=== PATIENT | male | born 1985 | race African-American/Black ===

== ENCOUNTER 2024-01-22 17:01 | Emergency (ER) | payer OTHER, SELFPAY ==
[2024-01-22 17:10] VITALS: BP 121/81
--- NOTE | 2024-01-22 18:11 | ED.GENMED ---
History of Present Illness
General
Chief Complaint: Medication Reaction
Time Seen by Provider: 01/22/24 18:02
Travel History
Have you had any contact with someone who has COVID-19?: No
Do you have any symptoms of coronavirus? Fever > 100 degrees, chills, cough, shortness of breath, sore throat, loss of taste or smell, muscle aches, or headache?: No
History of Present Illness
History of Present Illness:
38-year-old male presents to the emergency department from [facility]. He is apparently increasingly fatigued and having difficulty staying awake after having his Seroquel dosing increased. On my evaluation there is
no staff member present at the bedside however triage notes indicate that the patient's Seroquel was increased at nighttime to 600 mg in addition to 100 mg twice daily. Apparently the patient reported muscle aches and 'puffiness' to the triage team
however again on my evaluation he is minimally arousable even to a sternal rub. He is snoring loudly and has mildly dilated but reactive pupils. He will arouse briefly but speech is incoherent
Review of Systems
Review of Systems
Allergies reviewed?: Yes
All Other Systems: ROS reviewed and negative except as documented in HPI and ROS
Phy Exam
Physical Exam
Physical Exam:
GEN: Asleep, difficult to arouse, maintaining airway
HEENT: Oral mucosa moist, no scleral icterus
Cardiac: Regular rate
Lung: No respiratory distress, no tachypnea
MSK: No gross deformity or injuries
Skin: Good color, no pallor or jaundice, no rashes
Neuro: Asleep, arouses to deep tactile stimulation only briefly, speech is incoherent
Psych: Calm, cooperative
Course
Orders/Labs/Results
Orders:
Orders
01/22/24 18:22
Electrocardiogram (*1) Urgent
Reason for Study: QTc Monitoring
Bedside Glucose- Treatment ONCE
EKG- Treatment ONCE
01/22/24 18:37
Alcohol Urgent
CPK [Creatine Phosphokinase] Urgent
Complete Blood Count/With Diff Urgent
Comprehensive Metabolic Panel Urgent
Venous Blood Gas Urgent
%Oxygen/Room Air: 95
Abnormal Lab Results
01/22/24 01/22/24
18:37 18:39
WBC 3.1 L 10^3/uL
(4.8-10.8)
Hct 38.3 L %
(39.0-52.0)
MCV 75.7 L fL
(80.0-94.0)
MCH 26.3 L pg
(27.0-31.0)
Absolute Neuts (auto) 1.2 L 10^3/uL
(1.4-6.5)
Neutrophils % 38.5 L %
(42.2-75.2)
Monocytes % 12.1 H %
(1.7-9.3)
VBG pCO2 49 H mmHg
(35-48)
VBG pO2 202 H mmHg
(30-50)
VBG HCO3 30.4 H mmol/L
(22-27)
Glucose 122 H mg/dl
(70-99)
Creatine Kinase 486 H U/L
(55-170)
POC Glucose 127 H mg/dl
(70-99)
01/22/24 18:37
01/22/24 18:37
Vital Signs
Initial and Last Documented VS:
Initial Vital Signs
Temp Pulse Resp BP Pulse Ox
97.6 F 91 18 121/81 95
01/22/24 17:10 01/22/24 17:10 01/22/24 17:10 01/22/24 17:10 01/22/24 17:10
Last Documented Vital Signs
Temp Pulse Resp BP Pulse Ox
97.6 F 79 13 107/79 92
01/22/24 17:10 01/23/24 01:00 01/23/24 01:00 01/23/24 01:00 01/23/24 00:45
MDM/Problems Addressed
MDM/Problems Addressed:
Patient's vital signs remained stable, labs are unremarkable, no signs of encephalopathy. Likely combination of recent lack of sleep and high-dose antipsychotic use. Patient made in the ER essentially sleeping while awaiting a ride home, will need
to follow-up with his prescriber to adjust dosage of medications
*Critical Care Note
Total Time (30-74mins, 75-104mins- exclusive of procedures): Not Applicable
ED Attending Note
-
Portions of this chart may have been created with voice recognition software.� Occasional wrong word or��sound alike� substitutions may have occurred due to the inherent limitations of voice recognition software.
Discharge Plan
Departure
Patient Disposition: Home (Routine Discharge)
Date of Disposition: 01/22/24
Time of Disposition: 22:57
Patient with high blood pressure during this ER visit?: No
Discharge Problem:
Fatigue, Antipsychotics, neuroleptics, and major tranquilizers causing adverse effect in therapeutic use
Referrals:
UNKNOWN - PT NOT,INTERVIEWE [Family Provider] -
Activity Restrictions/Additional Instructions:
Please decrease Duke's Seroquel dosage as it appears to be causing excessive fatigue
Interventions
Interventions:
*Risk Screen - Suicide Last Done: 01/22/24 18:45
*Neglect/Abuse Screening Last Done: 01/22/24 18:45
ED- Fall Risk Assessment Last Done: 01/22/24 18:45
*ED COVID-19 Vaccine History Last Done: 01/22/24 18:45
ED-Skin Assessment Last Done: 01/22/24 18:45
ED- Pulmonary Assessment Last Done: 01/22/24 18:45
ED-EENT Assessment Last Done: 01/22/24 18:45
[2024-01-22 18:41] LABS: Glucose - Point of Care 127 mg/dl (70-99)
[2024-01-22 18:55] LABS: Venous Blood Gas B.E. 4.5 mmol/L (-4 to +4); Venous Blood Gas HCO3 30.4 mmol/L (22-27); Venous Blood Gas pCO2 49 mmHg (35-48); Venous Blood Gas pO2 202 mmHg (30-50)
[2024-01-22 18:59] LABS: % Eosinophils 4.5 % (0-6); % Lymphocytes 43.9 % (20.5-51.1); % Monocytes 12.1 % (1.7-9.3); % Neutrophils 38.5 % (42.2-75.2); Absolute Eosinophils 0.1 10^3/uL (0-0.7); Absolute Lymphocytes 1.4 10^3/uL (1.2-3.4); Absolute Monocytes 0.4 10^3/uL (0.1-0.6); Absolute Neutrophils 1.2 10^3/uL (1.4-6.5); Hematocrit 38.3 % (39.0-52.0); Hemoglobin 13.3 g/dL (13.0-18.0); Mean Corp Hgb Conc. 34.7 g/dL (33.0-37.0); Mean Corpuscular Hgb 26.3 pg (27.0-31.0); Mean Corpuscular Volume 75.7 fL (80.0-94.0); Mean Platelet Volume 9.3 fL (7.4-10.4); Nucleated Red Blood Cells % 0 % (-); Platelet Count 268 10^3/uL (130-400); Red Blood Cell Count 5.06 10^6/uL (4.70-6.10); White Blood Cell Count 3.1 10^3/uL (4.8-10.8)
[2024-01-22 19:08] LABS: ALT (SGPT) 36 U/L (0-50); AST (SGOT) 45 U/L (17-59); Albumin 4.2 g/dl (3.5-5.0); Alkaline Phosphatase 111 U/L (38-126); Blood Urea Nitrogen 9 mg/dl (9-20); Calcium 9.2 mg/dl (8.4-10.2); Carbon Dioxide 25 mmol/L (22-30); Chloride 105 mmol/L (98-107); Creatine Phosphokinase 486 U/L (55-170); Glucose 122 mg/dl (70-99); Potassium 3.7 mmol/L (3.5-5.1); Sodium 135 mmol/L (135-145); Total Bilirubin 0.5 mg/dl (0.2-1.3); Total Protein 7.2 g/dl (6.3-8.2); eGFR > 60.00
[2024-01-22 19:11] LABS: Alcohol None Detected
[2024-01-22 19:28] VITALS: BP 104/62
[2024-01-22 20:00] VITALS: BP 105/68
[2024-01-22 21:00] VITALS: BP 107/70
[2024-01-22 22:00] VITALS: BP 108/69
[2024-01-22 23:00] VITALS: BP 107/78
--- NOTE | 2024-01-22 23:01 | EDRN ---
Pt awake enough to speak to ELIDA Villavicencio. PA feels pt is stable enough to go home if picked up. Pt reports 'My mom can pick me up'. Mine (mother) called [phone]. Message left. Spoke to mother earlier with an update at 2029. Pt mother alerted staff
she was going to work at 2100. Report given to Radha.
[2024-01-23] VITALS: BP 105/69
[2024-01-23 01:00] VITALS: BP 107/79
[2024-01-23 02:00] VITALS: BP 110/79
[2024-01-23 03:00] VITALS: BP 111/80
[2024-01-23 04:00] VITALS: BP 101/82
[2024-01-23 08:03] VITALS: BP 136/71
== END 2024-01-23 08:32 | disposition home or self-care (01) ==
LOC: EMR 17:01
PROVIDERS: Physician Assistant; EMERGENCY PHYSICIAN Emergency Medicine
DX: R53.83 Other fatigue (principal); T43.505A Adverse effect of unspecified antipsychotics and neuroleptics, initial encounter; Y92.9 Unspecified place or not applicable
CPT/HCPCS: 99283; 80053; 82077; 82550; 82805; 82962; 85025; 93005

== ENCOUNTER 2024-02-05 12:40 | Emergency (ER) | payer OTHER, SELFPAY ==
[2024-02-05 13:07] VITALS: BP 126/86
--- NOTE | 2024-02-05 14:32 | ED.GENMED ---
History of Present Illness
General
Chief Complaint: Change in Mental Status
Source: patient and records
Time Seen by Provider: 02/05/24 14:27
Travel History
Have you had any contact with someone who has COVID-19?: No
Do you have any symptoms of coronavirus? Fever > 100 degrees, chills, cough, shortness of breath, sore throat, loss of taste or smell, muscle aches, or headache?: No
History of Present Illness
History of Present Illness:
38-year-old male past medical history of TBI presenting to the emergency department from [facility] to be evaluated for increased drowsiness. Patient seen in this ER for similar episode about 2 weeks ago with no obvious etiology however
it was attentionally related to a recent increase in patient's Seroquel although patient notes that he had this decreased recently down to 300 mg. Patient is without any other specific complaint at this time but does admit to the increased
drowsiness. Patient denies any drug or alcohol use
Past History
Past History
ED Past Medical History: Hypercholesterolemia and Other (Traumatic brain injury)
ED Past Surgical History: Orthopedic
Social History
Tobacco: Non-smoker
Alcohol: None
Drug: None
Living: with family
Review of Systems
Review of Systems
All Other Systems: ROS reviewed and negative except as documented in HPI and ROS
Phy Exam
Physical Exam
Physical Exam:
GENERAL: Alert , in no apparent distress
EYE: conjunctiva clear
NECK: Supple
ENT: o/p clr, mmm.
CARDIAC: Regular rate and rhythm
LUNGS: Clear breath sounds bilaterally, no acute respiratory distress, no wheezes/rales/rhonchi
NEUROLOGICAL: Alert and oriented x 3, ambulates with a steady gait
SKIN: Warm and dry, skin intact.
MUSCULOSKELETAL: well perfused.
PSYCH: Normal and appropriate interaction.
Scores
Heart Failure Risk
Heart Failure Risk Score: Not Applicable
Heart Score for Chest Pain Patients
STEMI patient?: Not applicable
Withdrawal Assessment of Alcohol
Withdrawal Assessment Completed?: Not applicable
Course
Orders/Labs/Results
Orders:
Orders
02/05/24 15:07
Complete Blood Count/With Diff Urgent
Comprehensive Metabolic Panel Urgent
02/05/24 15:08
Fentanyl, Urine Urgent
Urine Drug Abuse Screen Urgent
Date Specimen was Collected: 02/05/24
Time Specimen was Collected: 15:03
Abnormal Lab Results
02/05/24 02/05/24
15:07 15:08
WBC 3.6 L 10^3/uL
(4.8-10.8)
Hgb 12.5 L g/dL
(13.0-18.0)
Hct 35.8 L %
(39.0-52.0)
MCV 76.0 L fL
(80.0-94.0)
MCH 26.5 L pg
(27.0-31.0)
Monocytes % 13.8 H %
(1.7-9.3)
BUN 8 L mg/dl
(9-20)
Ur Buprenorphine Positive H
(Negative)
Ur Tricyclics Screen Positive H
(Negative)
Ur Amphetamines Screen Positive H
(Negative)
U Benzodiazepines Scrn Positive H
(Negative)
U Marijuana (THC) Screen Positive H
(Negative)
02/05/24 15:07
02/05/24 15:07
Vital Signs
Initial and Last Documented VS:
Initial Vital Signs
Temp Pulse Resp BP Pulse Ox
98.1 F 64 18 126/86 97
02/05/24 13:07 02/05/24 13:07 02/05/24 13:07 02/05/24 13:07 02/05/24 13:07
Last Documented Vital Signs
Temp Pulse Resp BP Pulse Ox
98.1 F 64 18 126/86 97
02/05/24 13:07 02/05/24 13:07 02/05/24 13:07 02/05/24 13:07 02/05/24 15:15
MDM/Problems Addressed
Differential Diagnosis Includes:
Medication side effect, substance abuse, less concern for infectious etiology
MDM/Problems Addressed:
38-year-old male presenting the emergency department for evaluation of drowsiness. Patient seen in the few weeks ago for similar and no etiology found and labs were otherwise unremarkable. On arrival to the emergency department patient is
ambulatory with steady gait, able to give a full history and conversive. No focal exam findings at this time. Will repeat labs and urine. Anticipate disposition home and continued outpatient workup.
Chronic conditions affecting care: Psychiatric illness
*Pulse Oximetry
Patient hypoxic: no
*Critical Care Note
Total Time (30-74mins, 75-104mins- exclusive of procedures): Not Applicable
Data Reviewed
Review of Other/Old Records Reveals: Labs and Records
Source: patient
Patient Management
Escalation/DeEscalation of care consider admission/obs:
Patient's labs appear unchanged from his previous 2 weeks ago. His UDS is consistent with his own medications outside of marijuana. Mother did contact me and states that she did find 2 bottles of Zoloft and a bottle of cyclobenzaprine in patient's
bedroom which she notes he is not prescribed these medications and believes that patient could be taking this. I explained that unfortunately I do not have a way to test for these but that it could be a potential cause for patient's excess
drowsiness. Patient combining marijuana with his other medications could also be a potential cause. Patient is awake alert and oriented x 3, ambulating with steady gait and at this time there does not appear to be any emergent pathology for his
presenting symptoms. Stable for discharge and continued outpatient management
ED Attending Note
-
Portions of this chart may have been created with voice recognition software.� Occasional wrong word or��sound alike� substitutions may have occurred due to the inherent limitations of voice recognition software.
Discharge Plan
Departure
Patient Disposition: Home (Routine Discharge)
Date of Disposition: 02/05/24
Time of Disposition: 15:42
Patient with high blood pressure during this ER visit?: No
Discharge Problem:
Drowsiness
Instructions: Dealing with Drowsiness from the Drugs You Take
Interventions
Interventions:
ED- Fall Risk Assessment Last Done: 02/05/24 15:15
ED- Pulmonary Assessment Last Done: 02/05/24 15:15
ED- Neurological Assessment Last Done: 02/05/24 15:15
ED Swallowing Screen Last Done: 02/05/24 15:15
Discharge Date and Time
Print Language: ARGENTINE
[2024-02-05 15:21] LABS: % Basophils 0.8 % (0-2); % Eosinophils 3.1 % (0-6); % Immature Granulocytes 0.3 % (0-0.5); % Lymphocytes 36.6 % (20.5-51.1); % Monocytes 13.8 % (1.7-9.3); % Neutrophils 45.4 % (42.2-75.2); Absolute Eosinophils 0.1 10^3/uL (0-0.7); Absolute Lymphocytes 1.3 10^3/uL (1.2-3.4); Absolute Monocytes 0.5 10^3/uL (0.1-0.6); Absolute Neutrophils 1.6 10^3/uL (1.4-6.5); Hematocrit 35.8 % (39.0-52.0); Hemoglobin 12.5 g/dL (13.0-18.0); Mean Corp Hgb Conc. 34.9 g/dL (33.0-37.0); Mean Corpuscular Hgb 26.5 pg (27.0-31.0); Mean Platelet Volume 10.1 fL (7.4-10.4); Nucleated Red Blood Cells % 0 % (-); Platelet Count 227 10^3/uL (130-400); Red Blood Cell Count 4.71 10^6/uL (4.70-6.10); Red Cell Dist. Width 14.1 % (11.5-14.5); White Blood Cell Count 3.6 10^3/uL (4.8-10.8)
[2024-02-05 15:33] LABS: Amphetamines Positive (Negative); Barbiturates Negative (Negative); Benzodiazepines Positive (Negative); Buprenorphine Positive (Negative); Cocaine Negative (Negative); Marijuana Positive (Negative); Methadone Negative (Negative); Methamphetamines Negative (Negative); Opiates Negative (Negative); Phencyclidine Negative (Negative); Tricyclic Antidepressants Positive (Negative)
[2024-02-05 15:43] LABS: ALT (SGPT) 36 U/L (0-50); AST (SGOT) 35 U/L (17-59); Albumin 4.1 g/dl (3.5-5.0); Alkaline Phosphatase 113 U/L (38-126); Blood Urea Nitrogen 8 mg/dl (9-20); Calcium 9.6 mg/dl (8.4-10.2); Carbon Dioxide 25 mmol/L (22-30); Chloride 105 mmol/L (98-107); Glucose 94 mg/dl (70-99); Potassium 3.9 mmol/L (3.5-5.1); Sodium 136 mmol/L (135-145); Total Bilirubin 0.4 mg/dl (0.2-1.3); Total Protein 7.1 g/dl (6.3-8.2); eGFR > 60.00
[2024-02-05 15:51] LABS: Fentanyl, Urine Negative (Negative)
[2024-02-05 16:02] VITALS: BP 118/98
== END 2024-02-05 16:04 | disposition home or self-care (01) ==
LOC: EMR 12:40
PROVIDERS: Physician Assistant Medical; EMERGENCY PHYSICIAN Emergency Medicine
DX: R40.0 Somnolence (principal); E78.00 Pure hypercholesterolemia, unspecified; Z87.820 Personal history of traumatic brain injury
CPT/HCPCS: 99283; 80053; 80306; 80307; 85025

== ENCOUNTER 2024-04-10 10:04 | Emergency (ER) | payer OTHER, SELFPAY ==
[2024-04-10 10:07] VITALS: BP 143/95
[2024-04-10 10:28] VITALS: BP 131/89
--- NOTE | 2024-04-10 10:29 | ED.CVA ---
History of Present Illness
General
Chief Complaint: CVA/TIA Symptoms
Source: patient
Exam Limitations: none
Time Seen by Provider: 04/10/24 10:19
Nursing documentation reviewed up to this point in time: agreed with
Onset of Stroke Symptoms
Onset of symptoms known: No
Time pt last seen normal is known: No
Travel History
Have you had any contact with someone who has COVID-19?: No
Do you have any symptoms of coronavirus? Fever > 100 degrees, chills, cough, shortness of breath, sore throat, loss of taste or smell, muscle aches, or headache?: No
History of Present Illness
History of Present Illness:
38-year-old male presents emergency department due to headache, slurred speech. He woke up Monday, 4 days ago with the symptoms.
Past History
Past History
ED Past Medical History: Hypercholesterolemia and Other (Traumatic brain injury)
ED Past Surgical History: Orthopedic
Social History
Tobacco: Non-smoker
Alcohol: None
Drug: None
Living: with family
Review of Systems
Review of Systems
Allergies reviewed?: Yes
All Other Systems: Not applicable
Constitutional: Reports no symptoms
EENT: Reports no symptoms
Respiratory: Reports no symptoms
Cardiac: Reports no symptoms
ABD/GI: Reports no symptoms
: Reports no symptoms
Musculoskeletal: Reports no symptoms
Skin: Reports no symptoms
Neurological: Reports headache
Endocrine: Reports no symptoms
Hematologic/Lymphatic: Reports no symptoms
Psychiatric: Reports no symptoms
Phy Exam
Physical Exam
Physical Exam:
Physical Exam
General: no apparent distress, not acutely ill
Neck: supple. no meningeal signs. normal posterior pharynx
Heart: s1/s2 regular rate and rhythm, no murmur. equal radial
pulses.
HEENT: Pupils equal round reactive to light, EOMI
Lungs: no acute respiratory distress. clear bilaterally
Abdomen: normal bowel sounds. not tender. no CVAT
Neuro: alert and oriented. no focal neurological deficits cranial nerves II through XII intact
Skin: no rash
Psychiatric: well kept. interactive and cooperative
Extremities: no edema. no calf tenderness. negative homans. good distal pulses
Course
Orders/Labs/Results
Orders:
Orders
04/10/24 10:27
CT Head W/o Iv Contrast Urgent
Comment:
Reason For Exam: headache, slurred speech, TBI, bruising parietal
IV Insert/Care/Rem.- Treatment PRN
04/10/24 10:43
Alcohol Urgent
Complete Blood Count/With Diff Urgent
Comprehensive Metabolic Panel Urgent
Abnormal Lab Results
04/10/24
10:43
RBC 4.41 L 10^6/uL
(4.70-6.10)
Hgb 11.6 L g/dL
(13.0-18.0)
Hct 34.2 L %
(39.0-52.0)
MCV 77.6 L fL
(80.0-94.0)
MCH 26.3 L pg
(27.0-31.0)
RDW 14.9 H %
(11.5-14.5)
Monocytes % 11.6 H %
(1.7-9.3)
Carbon Dioxide 31 H mmol/L
(22-30)
BUN 8 L mg/dl
(9-20)
AST 92 H U/L
(17-59)
04/10/24 10:43
04/10/24 10:43
Vital Signs
Initial and Last Documented VS:
Initial Vital Signs
Temp Pulse Resp BP Pulse Ox
97.7 F 81 18 143/95 95
04/10/24 10:07 04/10/24 10:07 04/10/24 10:07 04/10/24 10:07 04/10/24 10:07
Last Documented Vital Signs
Temp Pulse Resp BP Pulse Ox
97.7 F 71 18 124/88 95
04/10/24 10:07 04/10/24 13:43 04/10/24 13:43 04/10/24 13:43 04/10/24 13:43
MDM/Problems Addressed
Differential Diagnosis Includes:
cva, concussion, seizure
MDM/Problems Addressed:
38 yo male with likely concussion vs medication related drowsiness.
Chronic conditions affecting care: Psychiatric illness (schizophrenia)
Acute Exacerbation and/or Progression of Chronic Illness: Psychiatric illness (schizophrenia)
*Radiology
Radiology exam reviewed: radiology read reviewed (ct head nad)
*Pulse Oximetry
Patient hypoxic: no
*EKG
Interpreted by ED Provider?: NA
*Gun Repair Clerk Interpretation
Rate: Gun Repair Clerk- N/A
*Critical Care Note
Total Time (30-74mins, 75-104mins- exclusive of procedures): Not Applicable
Patient Management
Social determinants of health affecting care: Living situation and Strong social support
Escalation/DeEscalation of care consider admission/obs:
admit not indicated
ED Attending Note
-
Portions of this chart may have been created with voice recognition software.� Occasional wrong word or��sound alike� substitutions may have occurred due to the inherent limitations of voice recognition software.
Discharge Plan
Departure
Patient Disposition: Home (Routine Discharge)
Date of Disposition: 04/10/24
Time of Disposition: 13:30
Patient with high blood pressure during this ER visit?: Yes
Condition: Good
Discharge Problem:
Concussion
Instructions: Concussion, Adult ED, BLOOD PRESSURE
Prescriptions:
No Action
fluoxetine 40 mg Capsule
40 mg PO DAILY
atorvastatin 20 mg Tablet
20 mg PO DAILY
haloperidol 5 mg Tablet
5 mg PO QPM
quetiapine 300 mg Tablet
300 mg PO HS
quetiapine 100 mg Tablet
200 mg PO DAILY
gabapentin 300 mg Capsule
300 mg PO DAILY
lacosamide 100 mg Tablet
100 mg PO BID
Patient Comments:
04/10/2024- filled at [facility] on 04/09/2024 for 60 tablets
buprenorphine-naloxone 8-2 mg Film
2.5 film BUCCAL DAILY
Patient Comments:
04/10/2024- filled at [facility] on 03/27/2024 for 70 films
Referrals:
UNKNOWN - PT DOES,NOT KNOW [Family Provider] -
Activity Restrictions/Additional Instructions:
Follow up with your neurologist and psychiatrist. Return for any concerns.
Interventions
Interventions:
*Risk Screen - Suicide Last Done: 04/10/24 10:10
*Neglect/Abuse Screening Last Done: 04/10/24 10:10
*ED COVID-19 Vaccine History Last Done: 04/10/24 10:10
ED- Pulmonary Assessment Last Done: 04/10/24 10:36
ED- Neurological Assessment Last Done: 04/10/24 10:36
ED- Cardiac Assessment Last Done: 04/10/24 10:36
Discharge Date and Time
Print Language: LITHUANIAN
[2024-04-10 10:57] LABS: % Basophils 0.6 % (0-2); % Eosinophils 3.2 % (0-6); % Lymphocytes 37.3 % (20.5-51.1); % Monocytes 11.6 % (1.7-9.3); % Neutrophils 47.3 % (42.2-75.2); Absolute Eosinophils 0.2 10^3/uL (0-0.7); Absolute Lymphocytes 1.8 10^3/uL (1.2-3.4); Absolute Monocytes 0.6 10^3/uL (0.1-0.6); Absolute Neutrophils 2.3 10^3/uL (1.4-6.5); Hematocrit 34.2 % (39.0-52.0); Hemoglobin 11.6 g/dL (13.0-18.0); Mean Corp Hgb Conc. 33.9 g/dL (33.0-37.0); Mean Corpuscular Hgb 26.3 pg (27.0-31.0); Mean Corpuscular Volume 77.6 fL (80.0-94.0); Mean Platelet Volume 9.7 fL (7.4-10.4); Nucleated Red Blood Cells % 0 % (-); Platelet Count 186 10^3/uL (130-400); Red Blood Cell Count 4.41 10^6/uL (4.70-6.10); Red Cell Dist. Width 14.9 % (11.5-14.5); White Blood Cell Count 4.8 10^3/uL (4.8-10.8)
[2024-04-10 11:04] LABS: ALT (SGPT) 50 U/L (0-50); AST (SGOT) 92 U/L (17-59); Albumin 4.1 g/dl (3.5-5.0); Alcohol None Detected; Alkaline Phosphatase 103 U/L (38-126); Blood Urea Nitrogen 8 mg/dl (9-20); Carbon Dioxide 31 mmol/L (22-30); Chloride 102 mmol/L (98-107); Glucose 96 mg/dl (70-99); Potassium 3.5 mmol/L (3.5-5.1); Sodium 141 mmol/L (135-145); Total Bilirubin 0.5 mg/dl (0.2-1.3); eGFR > 60.00
[2024-04-10 13:40] VITALS: BP 124/88
[2024-04-10 13:43] VITALS: BP 124/88
[2024-04-10 14:00] VITALS: BP 120/83
[2024-04-10 15:00] VITALS: BP 117/84
== END 2024-04-10 15:48 | disposition home or self-care (01) ==
LOC: EMR 10:04
PROVIDERS: EMERGENCY PHYSICIAN Emergency Medicine
DX: S06.0XAA Concussion with loss of consciousness status unknown, initial encounter (principal); X58.XXXA Exposure to other specified factors, initial encounter; E78.00 Pure hypercholesterolemia, unspecified; F20.9 Schizophrenia, unspecified
CPT/HCPCS: 99284; 70450; 80053; 82077; 85025

== ENCOUNTER 2024-05-15 16:26 | Observation (INO) | payer OTHER, SELFPAY ==
[2024-05-15] VITALS (10 sets, daily range): BP systolic 126–155; BP diastolic 71–106; BMI 25.6; BMI 28.5
[2024-05-15 12:31] LABS: % Basophils 0.6 % (0-2); % Eosinophils 0.2 % (0-6); % Immature Granulocytes 0.2 % (0-0.5); % Lymphocytes 21.7 % (20.5-51.1); % Monocytes 9.1 % (1.7-9.3); % Neutrophils 68.2 % (42.2-75.2); Absolute Lymphocytes 1.1 10^3/uL (1.2-3.4); Absolute Monocytes 0.5 10^3/uL (0.1-0.6); Absolute Neutrophils 3.5 10^3/uL (1.4-6.5); Hematocrit 41.2 % (39.0-52.0); Hemoglobin 14.1 g/dL (13.0-18.0); Mean Corp Hgb Conc. 34.2 g/dL (33.0-37.0); Mean Platelet Volume 9.7 fL (7.4-10.4); Nucleated Red Blood Cells % 0 % (-); Platelet Count 299 10^3/uL (130-400); Red Blood Cell Count 5.42 10^6/uL (4.70-6.10); White Blood Cell Count 5.1 10^3/uL (4.8-10.8)
[2024-05-15 12:33] LABS: Urine Albumin Negative (Neg - Trace); Urine Bilirubin Negative (Negative); Urine Character Clear (Clear); Urine Color Yellow; Urine Glucose Negative (Negative); Urine Ketone Trace (Negative); Urine Leukocyte Negative (Negative); Urine Nitrite Negative (Negative); Urine Occult Blood Negative (Negative); Urine Urobilinogen Negative (Neg - 1+)
[2024-05-15 12:42] LABS: ALT (SGPT) 24 U/L (0-50); AST (SGOT) 36 U/L (17-59); Albumin 5.4 g/dl (3.5-5.0); Alkaline Phosphatase 99 U/L (38-126); Blood Urea Nitrogen 16 mg/dl (9-20); Carbon Dioxide 27 mmol/L (22-30); Chloride 104 mmol/L (98-107); Glucose 102 mg/dl (70-99); Potassium 4.3 mmol/L (3.5-5.1); Sodium 143 mmol/L (135-145); Total Bilirubin 0.8 mg/dl (0.2-1.3); Total Protein 8.9 g/dl (6.3-8.2); eGFR > 60.00
--- NOTE | 2024-05-15 12:42 | ED.GENMED ---
History of Present Illness
General
Chief Complaint: Change in Mental Status
Source: patient and other (Crisis team)
Time Seen by Provider: 05/15/24 12:29
History of Present Illness
History of Present Illness:
38-year-old male somewhat of a poor historian presents with an apparent mental status change. Information gathered from the record and from crisis is that the patient has been more confused recently although time course is unknown. I tried to
contact the mom and left a message. Patient states he feels like he has been off for the last week. He states however this been no changes medications. He denies any pain headache visual issues or focal neurologic symptoms. He denies fever. He
is followed at crisis.
Past History
Past History
ED Past Medical History: Hypercholesterolemia and Other (Traumatic brain injury)
ED Past Surgical History: Orthopedic
Social History
Tobacco: Non-smoker
Alcohol: None
Drug: None
Living: with family
Employment: Not employed
Review of Systems
Review of Systems
All Other Systems: Not applicable
Constitutional: Denies fever or chills
Neurological: Denies dizzy, headache, weakness or numbness
Phy Exam
Physical Exam
Physical Exam:
GENERAL: Alert. Slightly slow to answer questions. Knows his name. Knows his age. Aware he is at the hospital but unsure which 1. Had troubles with the year.
EYE: Orbits normal.
NECK: Supple, no significant adenopathy.
ENT: Pharynx without erythema
CARDIAC: Regular rate and rhythm without any obvious murmurs.
LUNGS: Clear breath sounds,normal
ABDOMEN: Soft, without focal tenderness or distention
NEUROLOGICAL: Alert. Nonfocal. Speech normal. Cranial nerves II through XII intact. [place] normal.
SKIN: Warm and dry, no rash or lesion, no discoloration, skin intact.
MUSCULOSKELETAL: No edema,no deformity.Good color
PSYCH: Flat affect. Denies suicidal or homicidal ideation
Course
Orders/Labs/Results
Orders:
Orders
05/15/24 12:02
Alcohol Urgent
CMP [Comprehensive Metabolic Panel] Urgent
Complete Blood Count/With Diff Urgent
Fentanyl, Urine Urgent
Urinalysis Reflex To Culture Urgent
Date Specimen was Collected: 05/15/24
Time Specimen was Collected: 11:55
Urine Drug Abuse Screen Urgent
Date Specimen was Collected: 05/15/24
Time Specimen was Collected: 11:55
05/15/24 12:39
Add On- LAB Urgent
Tests Added?: alcohol
05/15/24 13:08
CT Head W/o Iv Contrast Urgent
Comment:
Reason For Exam: Change in mental status.
05/15/24 13:20
Consult Psychiatry [PSYCHIATRY CONSULT] Urgent
Consulting Provider: Cindy Hercules
Was physician already notified: Yes
05/15/24 Dinner
Regular
At Your Request: Full Participation
05/15/24 15:34
Admit/Transfer Patient As Directed
Co-Sign Provider:
Level of Care: Observation services
Assign to:: Medical/Surgical
Physician / Group: pura morse
Diagnosis: Acute metabolic encephalopathy
PRN Pain Medication Management As Directed
May give lesser potent ordered pain med per pt: Yes
preference::
Protocol:: Medication orders for pain may be administered in a
manner that supports deferring to patient preference
when the pt is:
- Requesting an ordered lesser potent pain medication.
Least to most potent pain medications are defined
as: acetaminophen < NSAID < tramadol < opioids
(morphine, oxycodone, hydromorphone).
- Requesting a lesser dose of the same medication IF
ORDERED.
- Requesting a less intrusive route of administration
if both routes are prescribed by the provider (PO <
IV).
05/15/24 15:35
Code Status As Directed
Resuscitation Status: Full Code
05/15/24 16:46
0.9% Sodium Chloride 1000 ml [Nss] 1,000 ml IV 100 mls/hr
Acetaminophen [Tylenol] 650 mg PO Q4HPRN PRN
Bisacodyl [Dulcolax] 10 mg RECTAL [id number] PRN
Docusate W/Senna [Senokot-S] 1 tablet PO BIDPRN PRN
Polyethylene Glycol Powder [Miralax] 17 grams PO DAILYPRN PRN
05/15/24 16:46
Activity As Directed
Activity Level: Out of Bed-Early Mobility
Vital Signs As Directed
Frequency: Per unit guidelines
DX Deep Vein Thrombosis Video Routine
05/15/24 18:00
Enoxaparin Sodium [Lovenox] 40 mg SC QPM
Haloperidol [Haldol] 5 mg PO QPM
05/15/24 20:00
Lacosamide [Vimpat] 150 mg PO BID
05/15/24 22:00
Atorvastatin [Lipitor] 20 mg PO HS
Haloperidol [Haldol] 5 mg PO HS
05/16/24 06:00
Basic Metabolic Panel IN AM
Complete Blood Count/No Diff IN AM
05/16/24 08:00
Buprenorphine [Subutex] 20 mg SL DAILY
Fluoxetine HCl [Prozac] 40 mg PO DAILY
Gabapentin [Neurontin] 300 mg PO DAILY
Abnormal Lab Results
05/15/24
12:02
MCV 76.0 L fL
(80.0-94.0)
MCH 26.0 L pg
(27.0-31.0)
RDW 15.0 H %
(11.5-14.5)
Absolute Lymphs (auto) 1.1 L 10^3/uL
(1.2-3.4)
Glucose 102 H mg/dl
(70-99)
Total Protein 8.9 H g/dl
(6.3-8.2)
Albumin 5.4 H g/dl
(3.5-5.0)
Urine Ketones Trace A
(Negative)
Ur Buprenorphine Positive H
(Negative)
Ur Tricyclics Screen Positive H
(Negative)
U Benzodiazepines Scrn Positive H
(Negative)
U Marijuana (THC) Screen Positive H
(Negative)
05/15/24 12:02
05/15/24 12:02
Vital Signs
Initial and Last Documented VS:
Initial Vital Signs
Temp Pulse Resp BP Pulse Ox
98.4 F 70 18 155/106 96
05/15/24 11:51 05/15/24 11:51 05/15/24 11:51 05/15/24 11:51 05/15/24 11:51
Last Documented Vital Signs
Temp Pulse Resp BP Pulse Ox
99.1 F 69 18 152/92 99
05/15/24 16:46 05/15/24 16:46 05/15/24 16:46 05/15/24 16:46 05/15/24 18:06
MDM/Problems Addressed
Differential Diagnosis Includes:
Patient with some apparent change in mental status. Clinically nontoxic. Nothing to support infectious etiology. Previous records show some similar like events. Workup in progress.
*Radiology
Radiology exam reviewed: radiology read reviewed (Negative CT)
*Pulse Oximetry
Patient hypoxic: no
*Critical Care Note
Total Time (30-74mins, 75-104mins- exclusive of procedures): Not Applicable
Data Reviewed
Review of Other/Old Records Reveals: Labs and Records
Update Note
Update Note:
Patient seen by psychiatry. Does not orient x 3. Although nonfocal nontoxic no signs of meningitis. Highly suspect medications but given that this is an apparent change patient will be admitted for observation and further workup
ED Attending Note
-
Portions of this chart may have been created with voice recognition software.� Occasional wrong word or��sound alike� substitutions may have occurred due to the inherent limitations of voice recognition software.
Discharge Plan
Departure
Patient Disposition: Admit
Date of Disposition: 05/15/24
Time of Disposition: 14:51
Presentation/result/management discussed w/ accepting MD/DO: Hospitalist
Discharge Problem:
Change in mental status, Suspect medication/drug related
Interventions
Interventions:
*Risk Screen - Suicide Last Done: 05/15/24 12:52
*General Assessment Last Done: 05/15/24 12:52
*Neglect/Abuse Screening Last Done: 05/15/24 12:52
ED- Fall Risk Assessment Last Done: 05/15/24 12:52
*ED COVID-19 Vaccine History Last Done: 05/15/24 12:52
*Nursing Disposition Last Done: 05/15/24 16:21
ED- Pulmonary Assessment Last Done: 05/15/24 12:52
ED-Psychological Assessment Last Done: 05/15/24 12:52
ED- Neurological Assessment Last Done: 05/15/24 12:52
ED- Cardiac Assessment Last Done: 05/15/24 12:52
ED Swallowing Screen Last Done: 05/15/24 12:52
Discharge Date and Time
Discharge Date/Time: 05/15/24 16:40
[2024-05-15 13:00] LABS: Amphetamines Negative (Negative); Barbiturates Negative (Negative); Benzodiazepines Positive (Negative); Buprenorphine Positive (Negative); Cocaine Negative (Negative); Marijuana Positive (Negative); Methadone Negative (Negative); Methamphetamines Negative (Negative); Opiates Negative (Negative); Phencyclidine Negative (Negative)
[2024-05-15 13:01] LABS: Tricyclic Antidepressants Positive (Negative)
[2024-05-15 13:13] LABS: Alcohol None Detected
[2024-05-15 13:35] LABS: Fentanyl, Urine Negative (Negative)
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
--- NOTE | 2024-05-15 15:39 | HPS.HSE ---
Family Physician
-
Family Physician: INTERVIEWE UNKNOWN - PT NOT
Chief Complaint
-
Changes in mental status
History of Present Illness
Patient is 38 with history of drug use, hyperlipidemia, traumatic brain injury who came to the ER with change mental status, patient is poor historian, not fully oriented, patient last thing [place], was here at
[facility] for group therapy, he lives at [facility]
Patient denies any chest pain or shortness of breath, no fever or chills, no abdominal pain, no nausea, no vomiting, no diarrhea or constipation.
Seen by psych in the ER who recommends to skip Seroquel and consider Prozac in a.m. and Wellbutrin a.m., continue Haldol qhs
Patient will be admitted under hospitalist service observation status.
Medical History
Past Medical History
Past Medical History: Reports Hypercholesterolemia and Other (Seizure)
Past Surgical History: Reports Orthopedic
Social History
Tobacco: Other (Marijuana)
Alcohol: None
Drug: Former User (As per the patient but positive drug screen for benzo)
Personal:
Living: With Family
Family History
Family History: Not pertinent
Allergies / Home Medications
Allergies reflects when Allergies were last updated in [facility].
Home Medications with original date entered in [facility]
Allergy/Medication List:
Allergies
Allergy/AdvReac Type Severity Reaction Status Date / Time
No Known Allergies Allergy Verified 04/10/24 10:14
Home Medications
atorvastatin 20 mg tablet 20 mg PO HS 04/10/24
buprenorphine 8 mg-naloxone 2 mg sublingual film 2.5 film buccal DAILY 04/10/24
fluoxetine 40 mg capsule 40 mg PO DAILY 04/10/24
gabapentin 300 mg capsule 300 mg PO DAILY 04/10/24
haloperidol 5 mg tablet 5 mg PO DAILY 04/10/24
quetiapine 300 mg tablet 300 mg PO HS 04/10/24
lacosamide 150 mg tablet 150 mg PO BID 05/15/24
Review of Systems
-
A 12 point ROS was completed and negative except as noted: Yes
Constitutional: Reports Fatigue and Sleep Disturbance; Denies Fever, Weight Gain or Weight Loss
EENT: Denies Tearing, Sore Throat, Mouth Pain, Mouth Swelling or Runny Nose
Respiratory: Denies Cough, Hemoptysis or Trouble Breathing
Cardiac: Denies Chest Pain, Diaphoresis, Palpitations or Syncope
Abdomen/GI: Denies Abdominal Pain, Nausea, Vomiting, Diarrhea, Constipated, Bloody Stools or Black Stools
: Denies Dysuria, Frequency, Flank Pain, Incontinence, Difficulty Voiding, Urgency, Bleeding or Dark Urine
Musculoskeletal: Denies Joint Pain, Joint Swelling, Muscle Pain, Muscle Stiffness or Edema
Skin: Denies Itching or Rash
Neurological: Denies Dizzy, Headache, Weakness or Numbness
Endocrine: Denies Polyuria, Polydipsia or Temp Intolerance
Hematologic/Lymphatic: Denies Bleeding, Swollen Glands or Bruising
Psych: Reports Calm; Denies Depression, Anxiety or Panic Disorder
Physical Exam
Vital Signs
Vital Signs
Temp Pulse Resp BP Pulse Ox
98.2 F 86 15 126/71 99
05/15/24 14:00 05/15/24 14:00 05/15/24 14:00 05/15/24 14:00 05/15/24 14:00
Physical Exam
General: Well Developed, Well Nourished, No Apparent Distress, Comfortable and Good Appetite; No Pain, Chills or Sweats
HEENT: NormoCephalic, Moist mucous membranes, Atraumatic, Good Dentition, PERRLA, Nose Appears Normal and Ears Appear Normal
Respiratory: Clear
Cardiac: S1/S2 and Regular Rhythm
Breast: Deferred by me
GI: Soft, Non Tender, Non Distended and Normal Bowel Sounds
Genito-urinary: Deferred by me
Musculoskeletal: No Clubbing, No Cyanosis and No Edema
Skin: Warm; No Rash, Jaundice, Ulcers, Lesions or Decubitus Ulcers
Neuro: Awake (Not fully oriented), Oriented, No Motor Deficits, Nonfocal/grossly intact and Cranial Nerves Intact
Hematologic/Lymphatic: No Lymphadenopathy
Psych: Calm
Laboratory Results
-
05/15/24 12:02
05/15/24 12:02
Laboratory Results
Total Bilirubin 0.8 mg/dl (0.2-1.3) 05/15/24 12:02
AST 36 U/L (17-59) 05/15/24 12:02
ALT 24 U/L (0-50) 05/15/24 12:02
Alkaline Phosphatase 99 U/L (38-126) 05/15/24 12:02
Data Reviewed
-
Diagnostic Radiology: Report Reviewed by me
CT Scan: Report Reviewed by me
Medical Tests (Nuc Med, Echo, EKG etc): Report Reviewed by me
Lab Data: Labs Reviewed by me
Old Records: Reviewed
Impression/Plan
-
IMPRESSION:
38 years old with history of TBI, substance use disorder who came to the ER with a change in mental status, denies recent drug use but urine drug screen shows benzodiazepine which he is not on as outpatient.
PLAN:
Acute metabolic encephalopathy.
Multifactorial.
Possible secondary to drug use based on positive urine drug screen of benzodiazepine despite patient denied.
As per family patient was prescribed Seroquel but was not taking it at home.
Seen by psych in the ER who recommends to skip Seroquel and consider Prozac in a.m. and Wellbutrin a.m., continue Haldol qhs.
IV fluid hydration.
If no improvement will consider MRI brain and neurology consult.
Hyperlipidemia.
Continue atorvastatin
TBI, seizure
Continue Vimpat/gabapentin
CODE STATUS: Full code
DVT prophylaxis: Lovenox
Diet: Regular diet
--- NOTE | 2024-05-15 15:43 | PHANOTE ---
med rec tati(05/15/24): Called pharmacy for more details on medications. Of note, pharmacy stated patient did not take nor need Seroquel 100mg tablets, despite filling them on 04/24/24. Patient also may have run out of gabapentin 300mg capsules and
Suboxone 8-2 films.
[2024-05-15] MEDS: HALDOL 5 MG PO (17:35)
[2024-05-15] MEDS: NSS 1000 IV (17:35)
[2024-05-15] MEDS: LOVENOX 40 MG SC (17:35)
--- NOTE | 2024-05-15 18:12 | TRANSFER ---
Pt admitted from ED into room 435-2, ambulated from stretcher to bed. AAOx1, disoriented to time and place. Pt denies having any pain nor any other complaints at this time. Pt cooperative and agreeable to taking medications per MAR. Oriented to room
and plan of care. Call crowe within reach.
[2024-05-15] MEDS: VIMPAT 150 MG PO (22:26)
[2024-05-15] MEDS: LIPITOR 20 MG PO (22:26)
[2024-05-16] MEDS: NSS 1000 IV ×2 (05:45→18:06)
[2024-05-16 07:00] VITALS: BP 143/92
[2024-05-16 07:52] LABS: Hematocrit 38.4 % (39.0-52.0); Hemoglobin 13.3 g/dL (13.0-18.0); Mean Corp Hgb Conc. 34.6 g/dL (33.0-37.0); Mean Corpuscular Hgb 26.9 pg (27.0-31.0); Mean Corpuscular Volume 77.6 fL (80.0-94.0); Mean Platelet Volume 10.2 fL (7.4-10.4); Platelet Count 239 10^3/uL (130-400); Red Blood Cell Count 4.95 10^6/uL (4.70-6.10); Red Cell Dist. Width 14.7 % (11.5-14.5); White Blood Cell Count 5.8 10^3/uL (4.8-10.8)
[2024-05-16 07:59] LABS: Blood Urea Nitrogen 13 mg/dl (9-20); Calcium 9.4 mg/dl (8.4-10.2); Carbon Dioxide 26 mmol/L (22-30); Chloride 104 mmol/L (98-107); Estimated Creatinine Clearance 99 ml/min; Glucose 101 mg/dl (70-99); Potassium 3.8 mmol/L (3.5-5.1); Sodium 140 mmol/L (135-145); eGFR > 60.00
[2024-05-16] MEDS: SUBUTEX 20 MG SL (08:19)
[2024-05-16] MEDS: VIMPAT 150 MG PO ×2 (08:23→22:03)
[2024-05-16] MEDS: PROZAC 40 MG PO (08:26)
[2024-05-16] MEDS: NEURONTIN 300 MG PO (08:26)
--- NOTE | 2024-05-16 14:05 | W.PN.HOSP.TC ---
Today's Communication/Plan
-
Neurology Consult
Assessment / Plan
Assessment / Plan
Acute metabolic encephalopathy.
Multifactorial.
Possible secondary to drug use based on positive urine drug screen of benzodiazepine despite patient denied.
As per family patient was prescribed Seroquel but was not taking it at home.
Seen by psych in the ER who recommends to skip Seroquel and consider Prozac in a.m. and Wellbutrin a.m., continue Haldol qhs.
IV fluid hydration.
If no improvement will consider MRI brain and neurology consult.
05/16
Since no improvement on mental status will consult neurology.
MRI brain with and without contrast after seen by neurology.
Consider EEG
Hyperlipidemia.
Continue atorvastatin
TBI, seizure
Continue Vimpat/gabapentin
CODE STATUS: Full code
DVT prophylaxis: Lovenox
Diet: Regular diet
Anticipated Discharge: 24 - 48 hours
Subjective/Interval History
-
Date of Service: May 16, 2024
Patient seen and examined at bedside, patient still confused, but otherwise denies any chest pain or shortness of breath, no abdominal pain, no nausea, no vomiting, no diarrhea or constipation.
Discussed with psychiatrist, recommends neurology consult and possible MRI brain.
Objective Data
-
Labs:
Laboratory Results
05/16/24
07:05
WBC 5.8
Hgb 13.3
Hct 38.4 L
Plt Count 239 D
Sodium 140
Potassium 3.8
Chloride 104
Carbon Dioxide 26
BUN 13
Creatinine 1.0
Glucose 101 H
Calcium 9.4
Vital Signs:
Vital Signs
Temp Pulse Resp BP Pulse Ox
98.2 F 65 16 143/92 99
05/16/24 07:00 05/16/24 07:00 05/16/24 07:00 05/16/24 07:00 05/16/24 08:00
I&O
05/15/24 05/16/24 05/17/24
06:59 06:59 06:59
Output Total 350 / 350
Balance -350 / -350
Physical Exam
-
General: No Apparent Distress
HEENT: Normocephalic, Atraumatic and Moist Mucous Membranes
Respiratory: Clear to Auscultation
Cardiac: Regular Rhythm and S1/S2; Negative Murmur, Rub or Gallop
GI: Soft, Nontender, Nondistended and Normal Bowel Sounds; Negative Organomegaly
Rectal: Deferred by Provider
Musculoskeletal: No Clubbing, No Cyanosis and No Edema
Skin: Negative Rash
Neuro: Alert and Nonfocal/Grossly Intact
Psych: Confused
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
[2024-05-16 15:17] LABS: Creatine Phosphokinase 372 U/L (55-170)
--- NOTE | 2024-05-16 16:13 | W.PN.UPDATE ---
Update Note
Progress Note Update
patient seen chart reviewed. appreciate neuro consult. spoke with dr hendrix and pedro texted w dr morse. the patient earlier today remained disoriented to time and place although this afternoon when i spoke with him he could tell me it was 2023
but not the month. i explained to him the recommendations of dr hendrix including mri. will give one mg ativan 30 min prior. agree that it is likely patient not using meds as they are prescribed. talked w him about dc of hs seroquel for now and
continuing haldol 5 mg for now. he has not had overtly psychotic sx for the past year or more. he is agreeable to mom giving him his meds. if workup is all negative likely can dc tomorrow. i will speak to his out pt prescriber at that time.
patient was pleasant and cooperative.
--- NOTE | 2024-05-16 16:45 | CM ---
manager stone reviewed patient's chart and met with patient and patient lives with his mother in a 2 story home, patient is independent with adl's and ambulation, no dme, patient drives. Patient is followed by Shaina Chin.
Pharmacy: [facility] [place]
Plan; Home when stable.
[2024-05-16] MEDS: ATIVAN 1 MG PO (16:51)
[2024-05-16] MEDS: LOVENOX 40 MG SC (18:03)
[2024-05-16] MEDS: HALDOL 5 MG PO (18:04)
--- NOTE | 2024-05-16 18:17 | EEG.RPT ---
Electroencephalogram Report
Recording
Date of EE05/16/24
Length of EEG recordin mins
Done with Video Recording: Yes
Patient Status: Inpatient
Recording Conditions: Awake
Hyperventilation Performed: No
Photic Stimulation Performed: Yes
Report
METHODS
A 21 channel digitized electroencephalogram was performed at [facility]. The 10/20 international system of electrode placement was used. In addition to EEG, the patient was monitored for EKG. The duration of the recording was 28 minutes.
BACKGROUND
During the awake state, with the eyes closed, the background was diffusely slow ranging from 5 to 8Hz.
PHOTIC STIMULATION
Photic stimulation using a step-albarran increase in photic frequency varying from 1-31 Hertz resulted in no driving responses but no appearance of abnormal activity.
ABNORMAL EEG ACTIVITY
This EEG is abnormal due to the presence of diffuse slowing of the background to 5-8Hz.
CLINICAL EVENTS
None
INTERPRETATION AND CLINICAL CORRELATION
This EEG is abnormal due to the presence of diffuse slowing of the background to 5-8Hz. No clear seizure activity was noted. The study is consistent with mild diffuse cerebral dysfunction, nonspecific in etiology.
[2024-05-16] MEDS: LIPITOR 20 MG PO (22:03)
[2024-05-16 23:05] VITALS: BP 128/62
[2024-05-17] MEDS: NSS 1000 IV (02:33)
[2024-05-17 07:43] LABS: Ammonia 10 umol/L (9-30)
[2024-05-17 07:50] VITALS: BP 140/88
[2024-05-17 08:23] LABS: TSH Reflex To Free T4 1.67 uIU/ml (0.47-4.68)
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
[2024-05-17] MEDS: PROZAC 40 MG PO (09:18)
[2024-05-17] MEDS: SUBUTEX 20 MG SL (09:22)
[2024-05-17] MEDS: VIMPAT 150 MG PO (09:26)
--- NOTE | 2024-05-17 10:45 | W.PN.HOSP.TC ---
Today's Communication/Plan
-
Dc home
Assessment / Plan
Assessment / Plan
Acute metabolic encephalopathy.
Multifactorial.
Possible secondary to drug use based on positive urine drug screen of benzodiazepine despite patient denied.
As per family patient was prescribed Seroquel but was not taking it at home.
Seen by psych in the ER who recommends to skip Seroquel and consider Prozac in a.m. and Wellbutrin a.m., continue Haldol qhs.
IV fluid hydration.
If no improvement will consider MRI brain and neurology consult.
05/16
Since no improvement on mental status will consult neurology.
MRI brain with and without contrast after seen by neurology.
Consider EEG
05/17
This EEG is abnormal due to the presence of diffuse slowing of the background to 5-8Hz. No clear seizure activity was noted. The study is consistent with mild diffuse cerebral dysfunction, nonspecific in etiology.
MRi negative
will DC home
Hyperlipidemia.
Continue atorvastatin
TBI, seizure
Continue Vimpat/gabapentin
CODE STATUS: Full code
DVT prophylaxis: Lovenox
Diet: Regular diet
Anticipated Discharge: Today
Subjective/Interval History
-
Date of Service: May 17, 2024
Patient seen and examined at bedside, patient still confused, but otherwise denies any chest pain or shortness of breath, no abdominal pain, no nausea, no vomiting, no diarrhea or constipation.
Discussed with psychiatrist,negative MRI brain.
Objective Data
-
Vital Signs:
Vital Signs
Temp Pulse Resp BP Pulse Ox
98.1 F 73 14 140/88 94
05/17/24 07:50 05/17/24 07:50 05/17/24 07:50 05/17/24 07:50 05/17/24 07:50
I&O
05/16/24 05/17/24 05/18/24
06:59 06:59 06:59
Intake Total 1080 / 1080
Output Total 1275 / 1275
Balance -195 / -195
Physical Exam
-
General: No Apparent Distress
HEENT: Normocephalic, Atraumatic and Moist Mucous Membranes
Respiratory: Clear to Auscultation
Cardiac: Regular Rhythm and S1/S2; Negative Murmur, Rub or Gallop
GI: Soft, Nontender, Nondistended and Normal Bowel Sounds; Negative Organomegaly
Rectal: Deferred by Provider
Musculoskeletal: No Clubbing, No Cyanosis and No Edema
Skin: Negative Rash
Neuro: Alert and Nonfocal/Grossly Intact
Psych: Confused
--- NOTE | 2024-05-17 10:47 | W.DCSUMMARY ---
Discharge Summary
Discharge Data
Date of Admission: 05/15/24
Date of Discharge: 05/17/24
-
Pending Results: No
Hospital Course
Acute metabolic encephalopathy.
Multifactorial.
Possible secondary to drug use based on positive urine drug screen of benzodiazepine despite patient denied.
As per family patient was prescribed Seroquel but was not taking it at home.
Seen by psych in the ER who recommends to skip Seroquel and consider Prozac in a.m. and Wellbutrin a.m., continue Haldol qhs.
IV fluid hydration.
If no improvement will consider MRI brain and neurology consult.
05/16
Since no improvement on mental status will consult neurology.
MRI brain with and without contrast after seen by neurology.
Consider EEG
05/17
This EEG is abnormal due to the presence of diffuse slowing of the background to 5-8Hz. No clear seizure activity was noted. The study is consistent with mild diffuse cerebral dysfunction, nonspecific in etiology.
MRi negative
will DC home
Hyperlipidemia.
Continue atorvastatin
TBI, seizure
Continue Vimpat/ Dc gabapentin
CODE STATUS: Full code
DVT prophylaxis: Lovenox
Diet: Regular diet
Discharge Plan
-
Patient Disposition: Home (Routine Discharge)
Discharge Diagnosis/Procedures: change in mental status
Condition: Good
Diet: No restrictions
Activity: No restrictions
Driving Restrictions: As prior to admission
Referrals:
UNKNOWN - PT NOT,INTERVIEWE [Family Provider] -
Prescriptions:
Continued
fluoxetine 40 mg Capsule
40 mg PO DAILY
atorvastatin 20 mg Tablet
20 mg PO HS
haloperidol 5 mg Tablet
5 mg PO DAILY
buprenorphine-naloxone 8-2 mg Film
2.5 film BUCCAL DAILY
lacosamide 150 mg Tablet
150 mg PO BID
Discontinued
quetiapine 300 mg Tablet
300 mg PO HS
gabapentin 300 mg Capsule
300 mg PO DAILY
Discharge Orders:
Discharge Patient (As Directed); Ordered 05/17/24
Ordered By: Danita Yoder
Discharge Date and Time
Print Language: LATVIAN
[2024-05-17] MEDS: NSS IV (10:53)
--- NOTE | 2024-05-17 11:10 | CM ---
Patient seen bedside, for discharge today. Patient reports no needs to CM at this time. CM will continue to follow for all discharge planning needs.
Plan; home no needs.
--- NOTE | 2024-05-17 11:47 | W.PN.UPDATE ---
Update Note
Progress Note Update
patient seen chart reviewed. spoke with dr morse. spoke with mom. the patient's mri is without acute changes as is cat scan eeg w diffuse slowing. appreciate dr hendrix's note. patient at this point is cleared for dc from neuro and psych. went
over with patient and mom the following recommendations stop seroquel and minimize sedating meds stop gabapentin STOP marijuana. mom should dispense meds and patient must refrain from taking meds that are not his. he will followup with his out
patient prescriber tianna leavitt whom i have texted today. . he should continue w haldol 5 mg.continue lacosamine followup w neuro. continue prozac 40 mg and buprenorphine as is. he is pleasant and cooperative. he is fully oriented
today he does continue to be a bit slow in his manner but i suspect this is his baseline.
[2024-05-17 15:48] VITALS: BP 134/96
[2024-05-20 11:52] LABS: Alpha-Tocopherol 6.6 mg/L (5.5-18.0); Gamma-Tocopherol 0.7 mg/L (0.0-6.0)
== END 2024-05-17 16:10 | disposition home or self-care (01) ==
LOC: 4 WEST ACU 16:26
PROVIDERS: Emergency Medicine; ADMITTING PHYSICIAN General Practice; CONSULT PHYSICIAN Psychiatry & Neurology Psychiatry; CONSULT PHYSICIAN Student in an Organized Health Care Education/Training Program; EMERGENCY PHYSICIAN Emergency Medicine
DX: G93.41 Metabolic encephalopathy (principal); F19.10 Other psychoactive substance abuse, uncomplicated; E78.00 Pure hypercholesterolemia, unspecified; M54.9 Dorsalgia, unspecified; M54.2 Cervicalgia; F32.A Depression, unspecified; G40.909 Epilepsy, unspecified, not intractable, without status epilepticus; R29.2 Abnormal reflex; Z87.820 Personal history of traumatic brain injury
CPT/HCPCS: 70450; 70551; 80048; 80053; 80306; 80307; 81003; 82077; 82140; 82550; 84443; 84446; 85025; 85027; 95816; 99284; G0378

== ENCOUNTER 2024-05-23 08:23 | Emergency (ER) | payer OTHER, SELFPAY ==
[2024-05-23 08:31] VITALS: BP 153/110
--- NOTE | 2024-05-23 08:58 | EDRN ---
Khadra Wu PA in room w/ pt at this time.
--- NOTE | 2024-05-23 09:09 | ED.GENMED ---
History of Present Illness
General
Chief Complaint: Medication Reaction
Source: patient and family
Time Seen by Provider: 05/23/24 08:53
History of Present Illness
History of Present Illness:
38-year-old male with past medical history of schizoaffective disorder, TBI, seizure disorder presenting to the emergency department for evaluation of a multitude of symptoms including lethargy, muscle aches and body shaking, poor oral intake to
both solids and liquid, facial swelling and a sensation of jaw tightness that have been ongoing for the last few weeks. Patient was recently admitted at this facility for similar and this was thought to be possibly related to medication changes,
substance abuse and patient potentially taking medications that were not his. Mother states since discharge from this facility there has not been much change. There are no fevers or infectious symptoms. Patient stating right now his biggest
symptom is the lethargy. No other concerns at this time
Past History
Past History
ED Past Medical History: Hypercholesterolemia, Psychiatric and Other (Traumatic brain injury)
ED Past Surgical History: Orthopedic
Social History
Tobacco: Non-smoker
Alcohol: None
Drug: None
Personal: Single
Living: with family
Employment: Not employed
Review of Systems
Review of Systems
All Other Systems: ROS reviewed and negative except as documented in HPI and ROS
Phy Exam
Physical Exam
Physical Exam:
GENERAL: Alert , sleepy but does answer questions appropriately and arouses to voice
Head: Normocephalic atraumatic
EYE: pupils equal and reactive, pupils 4 mm bilateral
NECK: Supple
ENT: o/p clr, mmm.
CARDIAC: Regular rate and rhythm .
LUNGS: Clear breath sounds bilaterally, no acute respiratory distress, no wheezes/rales/rhonchi
ABDOMEN: Soft, without focal tenderness, no r/g, no cvat
NEUROLOGICAL: Alert and oriented to self place and year, intermittent bilateral leg shaking noted that will start and stop spontaneously the patient remains awake during this time
SKIN: Warm and dry, skin intact.
MUSCULOSKELETAL: well perfused.
PSYCH: Normal and appropriate interaction.
Scores
Heart Failure Risk
Heart Failure Risk Score: Not Applicable
Heart Score for Chest Pain Patients
STEMI patient?: Not applicable
Withdrawal Assessment of Alcohol
Withdrawal Assessment Completed?: Not applicable
Course
Orders/Labs/Results
Orders:
Orders
05/23/24 09:19
Complete Blood Count/With Diff Urgent
Comprehensive Metabolic Panel Urgent
TSH Urgent
05/23/24 09:44
Fentanyl, Urine Urgent
Urine Drug Abuse Screen Urgent
Date Specimen was Collected: 05/23/24
Time Specimen was Collected: 09:36
05/23/24 09:45
Potassium Chloride [KCl] 40 meq PO NOW STA
Abnormal Lab Results
05/23/24 05/23/24
09:19 09:44
Hct 38.4 L %
(39.0-52.0)
MCV 77.0 L fL
(80.0-94.0)
MCH 26.9 L pg
(27.0-31.0)
Potassium 3.1 L mmol/L
(3.5-5.1)
BUN 5 L mg/dl
(9-20)
Glucose 119 H mg/dl
(70-99)
Ur Buprenorphine Positive H
(Negative)
U Marijuana (THC) Screen Positive H
(Negative)
05/23/24 09:19
05/23/24 09:19
Vital Signs
Initial and Last Documented VS:
Initial Vital Signs
Temp Pulse Resp BP Pulse Ox
98.4 F 69 18 153/110 97
05/23/24 08:31 05/23/24 08:31 05/23/24 08:31 05/23/24 08:31 05/23/24 08:31
Last Documented Vital Signs
Temp Pulse Resp BP Pulse Ox
98.4 F 64 16 149/101 100
05/23/24 08:31 05/23/24 10:15 05/23/24 10:15 05/23/24 10:15 05/23/24 10:15
MDM/Problems Addressed
Differential Diagnosis Includes:
Medication side effect, substance abuse, less concern for focal seizure given patient is awake and talking at the time of the shaking, Extrapyramidal symptoms
MDM/Problems Addressed:
38-year-old male presenting the emergency department for reevaluation of continued fatigue, leg shaking, facial swelling and generally feeling unwell. Symptoms are similar to previous visits to the ER and upon record review patient has been seen
multiple times for similar type reactions. During his recent admission patient had a brain MRI which was unremarkable as well as EEG which showed slowing but this was not thought to be related to any seizure activity and thought to be around
patient's baseline. Based off of previous encounters myself with the patient as well as his record review patient appears to be at his baseline presently and I am less suspicious for any acute emergent pathologies. Given his multiple psychiatric
medications extrapyramidal symptoms being considered however thought to be less likely. I do not have concern for seizure given patient's recent EEG which did not show any abnormal seizure activity. Patient will likely require continued close
follow-up with outpatient providers
Chronic conditions affecting care: Psychiatric illness
Acute Exacerbation and/or Progression of Chronic Illness: Psychiatric illness
*Pulse Oximetry
Patient hypoxic: no
*Critical Care Note
Total Time (30-74mins, 75-104mins- exclusive of procedures): Not Applicable
Data Reviewed
Review of Other/Old Records Reveals: Labs, Records, Radiology Studies and Discharge Summary
Source: patient and family
Patient Management
Escalation/DeEscalation of care consider admission/obs:
Patient labs largely unremarkable. Has mild hypokalemia which was orally repleted. 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
and todays presentation. I discussed with Shaina Chin who will attempt to place patient at inpatient facility as patient is willing to voluntarily be admitted. Patient to be dispositioned to [facility] until facility can accept patient in
transfer.
ED Attending Note
-
Portions of this chart may have been created with voice recognition software.� Occasional wrong word or��sound alike� substitutions may have occurred due to the inherent limitations of voice recognition software.
Discharge Plan
Departure
Patient Disposition: Other
Patient with high blood pressure during this ER visit?: Yes
Discharge Problem:
Drowsiness
Instructions: Side effects from medicines
Prescriptions:
No Action
fluoxetine 40 mg Capsule
40 mg PO DAILY
atorvastatin 20 mg Tablet
20 mg PO HS
haloperidol 5 mg Tablet
5 mg PO DAILY
buprenorphine-naloxone 8-2 mg Film
2.5 film BUCCAL DAILY
lacosamide 150 mg Tablet
150 mg PO BID
Referrals:
UNKNOWN - PT DOES,NOT KNOW [Family Provider] -
Interventions
Interventions:
*Risk Screen - Suicide Last Done: 05/23/24 08:32
*General Assessment Last Done: 05/23/24 08:32
*Neglect/Abuse Screening Last Done: 05/23/24 09:57
ED- Fall Risk Assessment Last Done: 05/23/24 09:07
*ED COVID-19 Vaccine History Last Done: 05/23/24 08:32
*Nursing Disposition Last Done: 05/23/24 10:24
ED-Skin Assessment Last Done: 05/23/24 09:08
ED- Pulmonary Assessment Last Done: 05/23/24 09:08
ED-EENT Assessment Last Done: 05/23/24 09:24
Discharge Date and Time
Discharge Date/Time: 05/23/24 10:31
Print Language: INDONESIAN
[2024-05-23 09:11] VITALS: BMI 28.7
[2024-05-23 09:31] LABS: % Basophils 0.4 % (0-2); % Eosinophils 0.6 % (0-6); % Immature Granulocytes 0.2 % (0-0.5); % Monocytes 9.3 % (1.7-9.3); % Neutrophils 65.5 % (42.2-75.2); Absolute Lymphocytes 1.2 10^3/uL (1.2-3.4); Absolute Monocytes 0.5 10^3/uL (0.1-0.6); Absolute Neutrophils 3.4 10^3/uL (1.4-6.5); Hematocrit 38.4 % (39.0-52.0); Hemoglobin 13.4 g/dL (13.0-18.0); Mean Corp Hgb Conc. 34.9 g/dL (33.0-37.0); Mean Corpuscular Hgb 26.9 pg (27.0-31.0); Mean Platelet Volume 9.9 fL (7.4-10.4); Nucleated Red Blood Cells % 0 % (-); Platelet Count 296 10^3/uL (130-400); Red Blood Cell Count 4.99 10^6/uL (4.70-6.10); Red Cell Dist. Width 14.4 % (11.5-14.5); White Blood Cell Count 5.2 10^3/uL (4.8-10.8)
[2024-05-23 09:42] LABS: ALT (SGPT) 24 U/L (0-50); AST (SGOT) 27 U/L (17-59); Albumin 4.7 g/dl (3.5-5.0); Alkaline Phosphatase 104 U/L (38-126); Blood Urea Nitrogen 5 mg/dl (9-20); Calcium 9.8 mg/dl (8.4-10.2); Carbon Dioxide 28 mmol/L (22-30); Chloride 101 mmol/L (98-107); Estimated Creatinine Clearance 124 ml/min; Glucose 119 mg/dl (70-99); Potassium 3.1 mmol/L (3.5-5.1); Sodium 139 mmol/L (135-145); Total Bilirubin 0.6 mg/dl (0.2-1.3); Total Protein 7.6 g/dl (6.3-8.2); eGFR > 60.00
[2024-05-23 09:44] VITALS: BP 144/101
--- NOTE | 2024-05-23 09:56 | EDRN ---
Pt administered vaseline for his dry lips.
[2024-05-23] MEDS: KCL 40 MEQ PO (10:04)
--- NOTE | 2024-05-23 10:11 | EDRN ---
Pt seen by Krystian Ugalde Bag Turner at this time and pt has decided to do inpt therapy at this time.
[2024-05-23 10:14] LABS: TSH 1.74 uIU/ml (0.47-4.68)
[2024-05-23 10:15] VITALS: BP 149/101
--- NOTE | 2024-05-23 10:32 | EDRN ---
Pt asked that this RN call mother and let her know his disposition to crisis where pt is now. This RN called mother at [phone], after pt gave this RN phone number) that pt decided to be discharged to crisis at this time.
[2024-05-23 10:39] LABS: Amphetamines Negative (Negative); Barbiturates Negative (Negative); Benzodiazepines Negative (Negative); Buprenorphine Positive (Negative); Cocaine Negative (Negative); Marijuana Positive (Negative); Methadone Negative (Negative); Methamphetamines Negative (Negative); Opiates Negative (Negative); Phencyclidine Negative (Negative); Tricyclic Antidepressants Negative (Negative)
[2024-05-23 11:48] LABS: Fentanyl, Urine Negative (Negative)
== END 2024-05-23 10:31 | disposition other institution (70) ==
LOC: EMR 08:23
PROVIDERS: Physician Assistant Medical; EMERGENCY PHYSICIAN Emergency Medicine
DX: R53.83 Other fatigue (principal); R22.0 Localized swelling, mass and lump, head; E87.6 Hypokalemia; R25.1 Tremor, unspecified; F25.9 Schizoaffective disorder, unspecified; R56.9 Unspecified convulsions; E78.00 Pure hypercholesterolemia, unspecified; Z87.820 Personal history of traumatic brain injury
CPT/HCPCS: 99283; 80053; 80306; 80307; 84443; 85025